=== PATIENT | female | born 2000 | race Caucasian/White ===

== ENCOUNTER 2019-07-13 20:26 | Emergency (ER) | payer OTHER ==
--- NOTE | 2019-07-13 21:07 | EDM.PDOC ---
ED HPI GENERAL MEDICAL PROBLEM - General Chief Complaint: Genitourinary Problem Stated Complaint: BACK PAIN AND VOMITING Time Seen by Provider: 07/13/19 20:28 Source of Information: Reports: Patient History Limitations: Reports: No Limitations - History of Present Illness INITIAL COMMENTS - FREE TEXT/NARRATIVE: HISTORY AND PHYSICAL: History of present illness: Patient is a 19-year-old female who presents to the ED today with concern of low back pain and burning with urination over the past 2 days. Patient states that she has had some nausea today but has not vomited. Patient states that she has felt warm today but has not checked her temperature at home. Patient states she has not taken anything for her symptoms. Patient denies any other symptoms or concerns. Patient denies chills, chest pain, shortness of breath, or cough. Denies headache, neck stiff ness, change in vision, syncope, or near syncope. Denies nausea, vomiting, abdominal pain, diarrhea, constipation. Has not noted any blood in urine or stool. Patient has been eating and drinking appropriately. Review of systems: As per history of present illness and below otherwise all systems reviewed and negative. Past medical history: As per history of present illness and as reviewed below otherwise noncontributory. Surgical history: As per history of present illness and as reviewed below otherwise noncontributory. Social history: See social history for further information Family history: As per history of present illness and as reviewed below otherwise noncontributory. Physical exam: General: Patient is alert, oriented, and in no acute distress. Patient sitting comfortably on exam table. HEENT: Atraumatic, normocephalic, pupils equal and reactive bilaterally, negative for conjunctival pallor or scleral icterus, mucous membranes moist, TMs normal bilaterally, throat clear, neck supple, nontender, trachea midline. No drooling or trismus noted. No meningeal signs. No hot potato voice noted. Lungs: Clear to auscultation, breath sounds equal bilaterally, chest nontender. Heart: S1S2, regular rate and rhythm without overt murmur Abdomen: Soft, nondistended, nontender. Negative for masses or hepatosplenomegaly. Negative for costovertebral tenderness. Pelvis: Stable nontender. Genitourinary: Deferred. Rectal: Deferred. Skin: Intact, warm, dry. No lesions or rashes noted. Extremities/musculoskeletal: No obvious deformity of the complete spine. No step-offs, crepitus, or point tenderness to palpation of the complete spine. Atraumatic, negative for cords or calf pain. Neurovascular unremarkable. Neuro: Awake, alert, oriented. Cranial nerves II through XII unremarkable. Cerebellum unremarkable. Motor and sensory unremarkable throughout. Exam nonfocal. Notes: Discussed importance for follow-up with a primary care provider. Voices understanding and is agreeable to plan of care. Denies any further questions or concerns at this time. Diagnostics: UA, uhcg (labwork was offered to patient but she declines at this time) Therapeutics: None Prescription: Ciprofloxacin, Pyridium Impression: Urinary tract infection Plan: 1. Take medication as prescribed. You can alternate ibuprofen and Tylenol as directed for pain and discomfort. 2. Follow-up with the primary care provider as discussed. Return to the ED as needed and as discussed. Definitive disposition and diagnosis as appropriate pending reevaluation and review of above. back Pain Score (Numeric/FACES): 10 - Related Data Allergies Allergy/AdvReac Type Severity Reaction Status Date / Time Sulfa (Sulfonamide Allergy Hives Verified 07/13/19 20:48 Antibiotics) Home Meds: Home Meds Birthcontrol 07/13/19 [History] Ciprofloxacin [Cipro XR] 500 mg PO BID 7 Days #10 tab.er 07/13/19 [Rx] Phenazopyridine HCl [Pyridium] 200 mg PO TID 2 Days #6 tablet 07/13/19 [Rx] Past Medical History HEENT History: Reports: None Cardiovascular History: Reports: None Respiratory History: Reports: None Gastrointestinal History: Reports: None Genitourinary History: Reports: None Other [employer] History: cyst from ovaries removed Musculoskeletal History: Reports: None Neurological History: Reports: None Psychiatric History: Reports: None Endocrine/Metabolic History: Reports: None Hematologic History: Reports: None Immunologic History: Reports: None Oncologic (Cancer) History: Reports: None Dermatologic History: Reports: None - Infectious Disease History Infectious Disease History: Reports: Meningitis Social & Family History - Family History Family Medical History: Noncontributory - Tobacco Use Smoking Status *Q: Never Smoker - Recreational Drug Use Recreational Drug Use: No ED ROS GENERAL - Review of Systems Review Of Systems: Comprehensive ROS is negative, except as noted in HPI. ED EXAM, GENERAL - Physical Exam Exam: See Below (see dictation) Course - Vital Signs Last Recorded V/S: Last Vital Signs Temp 99.3 F 07/13/19 20:50 Pulse 114 H 07/13/19 20:50 Resp 20 07/13/19 20:50 BP 154/91 H 07/13/19 20:50 Pulse Ox 100 07/13/19 20:50 - Orders/Labs/Meds Orders: Active Orders 24 hr Category Date Time Status CULTURE URINE [RM] Stat Lab 07/13/19 20:56 Received Labs: Laboratory Tests 07/13/19 07/13/19 Range/Units 20:56 20:56 Urine Color YELLOW Urine Appearance SLT CLOUDY Urine pH 7.0 (5.0-8.0) Ur Specific Carter 1.015 (1.001-1.035) Urine Protein TRACE H (NEGATIVE) mg/dL Urine Glucose (UA) NEGATIVE (NEGATIVE) mg/dL Urine Ketones TRACE H (NEGATIVE) mg/dL Urine Occult Blood MODERATE H (NEGATIVE) Urine Nitrite NEGATIVE (NEGATIVE) Urine Bilirubin NEGATIVE (NEGATIVE) Urine Urobilinogen 0.2 (<2.0) EU/dL Ur Leukocyte Esterase SMALL H (NEGATIVE) Urine RBC 3-5 (0-2/HPF) Urine WBC 10-15 (0-5/HPF) Ur Epithelial Cells OCCASIONAL (NONE-FEW) Urine Bacteria 1+ H (NEGATIVE) Urine HCG, Qual NEGATIVE (NEGATIVE) Departure - Departure Time of Disposition: 21:23 Disposition: Home, Self-Care 01 Clinical Impression: Urinary tract infection Qualifiers: Urinary tract infection type: acute cystitis Hematuria presence: without hematuria Qualified Code(s): N30.00 - Acute cystitis without hematuria - Discharge Information Referrals: PCP,None [Primary Care Provider] - Forms: ED Department Discharge Additional Instructions: The following information is given to patients seen in the emergency department who are being discharged to home. This information is to outline your options for follow-up care. We provide all patients seen in our emergency department with a follow-up referral. The need for follow-up, as well as the timing and circumstances, are variable depending upon the specifics of your emergency department visit. If you don't have a primary care physician on staff, we will provide you with a referral. We always advise you to contact your personal physician following an emergency department visit to inform them of the circumstance of the visit and for follow-up with them and/or the need for any referrals to a consulting specialist. The emergency department will also refer you to a specialist when appropriate. This referral assures that you have the opportunity for follow-up care with a specialist. All of these measure are taken in an effort to provide you with optimal care, which includes your follow-up. Under all circumstances we always encourage you to contact your private physician who remains a resource for coordinating your care. When calling for follow-up care, please make the office aware that this follow-up is from your recent emergency room visit. If for any reason you are refused follow-up, please contact the [facility] Emergency Department at and asked to speak to the emergency department charge nurse. [facility] [address] [place] [address] [id number] [address] [address] 1. Take medication as prescribed. You can alternate ibuprofen and Tylenol as directed for pain and discomfort. 2. Follow-up with the primary care provider as discussed. Return to the ED as needed and as discussed. Sepsis Event Note - Evaluation Sepsis Screening Result: No Definite Risk - Focused Exam Vital Signs: Vital Signs Temp Pulse Resp BP Pulse Ox 07/13/19 20:50 99.3 F 114 H 20 154/91 H 100 Date Exam was Performed: 07/13/19 Time Exam was Performed: 21:20 - My Orders Last 24 Hours: My Active Orders 07/13/19 20:56 CULTURE URINE [RM] Stat - Assessment/Plan Last 24 Hours: My Active Orders 07/13/19 20:56 CULTURE URINE [RM] Stat
== END 2019-07-13 21:34 | disposition home or self-care (01) ==
LOC: MW.ED 20:26
DX: N30.00 Acute cystitis without hematuria (principal)
CPT/HCPCS: 81001; 81025; 87086; 87088; 87186; 99283

== ENCOUNTER 2022-07-29 08:20 | Inpatient (IN) | payer OTHER ==
[2022-07-29] MEDS: Lactated Ringers 1,000 ML IV SCH ×3 (08:45→21:20)
[2022-07-29] MEDS ORDERED: Misoprostol 200 MCG Tab PO PRN (08:54)
[2022-07-29] MEDS ORDERED: Lidocaine 1% 50 ML MDV INJECT PRN (08:54)
[2022-07-29] MEDS ORDERED: Carboprost Tromethamine 250 MCG/1 mL Vial IM PRN (08:54)
[2022-07-29] MEDS ORDERED: Methylergonovine 0.2 MG/1 ML Amp IM PRN (08:54)
[2022-07-29] MEDS ORDERED: Sodium Chloride 0.9% 10 ML Syringe FLUSH PRN (08:54)
[2022-07-29] MEDS ORDERED: Water For Irrigation,Sterile 1,000 ML Container IRR PRN (08:54)
[2022-07-29] MEDS ORDERED: Butorphanol 1 MG/ML SDV IVPUSH PRN (08:54)
[2022-07-29] MEDS ORDERED: Misoprostol 25 MCG (1/4 of 100 MCG) Tab VAG PRN ×2 (08:54)
[2022-07-29] MEDS ORDERED: Sodium Chloride 0.9% 2.5 ML Syringe FLUSH PRN (08:54)
[2022-07-29] MEDS ORDERED: Terbutaline 1 MG/ML SDV SUBCUT PRN (08:54)
[2022-07-29] MEDS ORDERED: Tranexamic Acid 1,000 MG in Sodium Chloride 0.9% 100 ML IV PRN (08:54)
[2022-07-29] MEDS ORDERED: Sodium Chloride 0.9% 20 ML SDV IV PRN (08:54)
[2022-07-29] MEDS ORDERED: Oxytocin/0.9 % Sodium Chloride 30 UNIT/500 ML BAG IV SCH ×2 (09:00)
[2022-07-29] MEDS ORDERED: ePHEDrine 50 MG/ML SDV IVPUSH PRN ×2 (09:06)
[2022-07-29 09:14] LABS: HEMATOCRIT 36.4 % (36.0-46.0); HEMOGLOBIN 12.4 g/dL (12.0-16.0); MEAN CORPUSCULAR HEMOGLOBIN 29.5 pg (27.0-32.0); MEAN CORPUSCULAR HGB CONC 34.1 g/dL (31.0-37.0); MEAN CORPUSCULAR VOLUME 86.7 fL (80.0-98.0); MEAN PLATELET VOLUME 9.8 fL (7.40-12.00); RED BLOOD CELL COUNT 4.2 M/uL (4.30-5.90); WHITE BLOOD CELL COUNT,WBC 10.85 K/uL (4.0-11.0)
[2022-07-29] MEDS ORDERED: Ropivacaine HCl/PF 400 MG in Premix Bag 1 BAG EPIDUR SCH (09:15)
[2022-07-29] MEDS ORDERED: Dexmedetomidine 200 MCG/2 ML SDV ONE (19:08)
[2022-07-29] MEDS: Phenylephrine HCl 0.5 MG/5 ML AMP IVPUSH PRN ×2 (20:28→23:08)
[2022-07-29] MEDS ORDERED: LORazepam 2 MG/ML SDV IVPUSH ONE (20:40)
[2022-07-29] MEDS ORDERED: Meperidine PF 25 MG/ML SDV IM PRN (21:13)
[2022-07-29] MEDS ORDERED: Meperidine PF 25 MG/ML SDV IVPUSH PRN (21:25)
[2022-07-30] MEDS: Lactated Ringers 1,000 ML IV SCH (00:03)
[2022-07-30] MEDS: Phenylephrine HCl 0.5 MG/5 ML AMP IVPUSH PRN (00:13)
[2022-07-30] MEDS ORDERED: Ondansetron 4 MG/2 ML SDV IVPUSH PRN (01:41)
[2022-07-30] MEDS ORDERED: Ibuprofen 400 MG Tab PO PRN (05:08)
[2022-07-30] MEDS ORDERED: Acetaminophen 500 MG Tab PO PRN (05:08)
[2022-07-30] MEDS ORDERED: Lanolin 100% Cream 7 GM Tube TOP PRN (05:08)
[2022-07-30] MEDS ORDERED: oxyCODONE 5 MG Tab PO PRN (05:08)
[2022-07-30] MEDS ORDERED: Bisacodyl 10 MG Supp RECTAL PRN (05:08)
[2022-07-30 05:22] LABS: PH,UMBILICAL ARTERIAL 7.25 (7.18-7.38); PH,UMBILICAL VENOUS 7.348 (7.25-7.45)
[2022-07-30] MEDS: Benzocaine/Menthol 20%-0.5% Spray 78 GM Cannister TOP PRN (07:00)
[2022-07-30] MEDS: Witch Hazel Medicated Pads 40/Jar TOP PRN (07:00)
[2022-07-30] MEDS: Ibuprofen 800 MG Tab PO PRN ×2 (07:01→13:26)
[2022-07-30] MEDS: Docusate Sodium 100 MG Cap PO PRN ×2 (10:33→22:08)
[2022-07-30] MEDS: Acetaminophen 500 MG Tab PO PRN (13:26)
[2022-07-31 05:47] LABS: HEMATOCRIT 30.9 % (36.0-46.0); HEMOGLOBIN 10.5 g/dL (12.0-16.0)
[2022-07-31] MEDS: Acetaminophen 500 MG Tab PO PRN (06:07)
[2022-07-31] MEDS: Benzocaine/Menthol 20%-0.5% Spray 78 GM Cannister TOP PRN (13:37)
[2022-07-31] MEDS: Witch Hazel Medicated Pads 40/Jar TOP PRN (13:37)
== END 2022-07-31 15:05 | disposition home or self-care (01) | DRG 807 ==
LOC: MW.OBCHECK 08:20 → MW.OB 08:22 → MW.OBCHECK 08:54 → MW.OB 08:54 → OBSVTOIN 07-30 04:35 → MW.OB 07-30 07:04
PROVIDERS: ADMIT Obstetrics & Gynecology; ATTEND Obstetrics & Gynecology
PROC: 10E0XZZ Delivery of Products of Conception, External Approach (ICD-10-PCS; principal; 2022-07-30)
PROC: 10907ZC Drainage of Amniotic Fluid, Therapeutic from Products of Conception, Via Natural or Artificial Opening (ICD-10-PCS; 2022-07-30)
PROC: 3E0P7VZ Introduction of Hormone into Female Reproductive, Via Natural or Artificial Opening (ICD-10-PCS; 2022-07-30)
PROC: 0HQ9XZZ Repair Perineum Skin, External Approach (ICD-10-PCS; 2022-07-30)
DX: O40.3XX0 Polyhydramnios, third trimester, not applicable or unspecified (principal); Z37.0 Single live birth; Z3A.39 39 weeks gestation of pregnancy; O70.0 First degree perineal laceration during delivery
CPT/HCPCS: 36415; 51702; 59025; 59409; 59414; 82803; 85014; 85018; 85027; 86592; 86850; 86900; 86901; A9270-GY; J2060; J2175; J2370; J2405; J2590; J3490; J7120

== ENCOUNTER 2022-08-15 11:33 | Emergency (ER) | payer OTHER ==
[2022-08-15] MEDS ORDERED: Ketorolac 30 MG/ML SDV IVPUSH ONE (12:16)
[2022-08-15 12:39] LABS: BASOPHILS ABSOLUTE AUTO 0.1 K/uL (0.0-0.1); BASOPHILS PERCENT AUTO 0.8 % (0.0-1.5); EOSINOPHILS ABSOLUTE AUTO 0.9 K/uL (0.0-0.7); EOSINOPHILS PERCENT AUTO 10.2 % (0.0-7.0); HEMATOCRIT 42.5 % (36.0-46.0); HEMOGLOBIN 14.4 g/dL (12.0-16.0); LYMPHOCYTES ABSOLUTE AUTO 2.7 K/uL (0.6-2.4); LYMPHOCYTES PERCENT AUTO 32.1 % (16.0-40.0); MEAN CORPUSCULAR HEMOGLOBIN 28.7 pg (27.0-32.0); MEAN CORPUSCULAR HGB CONC 33.9 g/dL (31.0-37.0); MEAN CORPUSCULAR VOLUME 84.8 fL (80.0-98.0); MONOCYTES ABSOLUTE AUTO 0.6 K/uL (0.0-0.8); MONOCYTES PERCENT AUTO 6.7 % (0.0-15.0); NEUTROPHILS ABSOLUTE AUTO 4.2 K/uL (1.4-5.7); NEUTROPHILS PERCENT AUTO 50.2 % (48.0-80.0); NRBC ABSOLUTE 0 K/uL; PLATELET COUNT,PLT 387 K/uL (150-400); RED BLOOD CELL COUNT 5.01 M/uL (4.30-5.90); WHITE BLOOD CELL COUNT,WBC 8.45 K/uL (4.0-11.0)
[2022-08-15 12:59] LABS: A/G RATIO 0.9 (0.9-1.6); ALBUMIN 3.4 g/dL (3.4-5.0); BILIRUBIN TOTAL 0.4 mg/dL (0.2-1.0); CALCIUM 9.1 mg/dL (8.5-10.1); CARBON DIOXIDE,CO2 24.9 mmol/L (21.0-32.0); CREATININE 0.7 mg/dL (0.6-1.0); EST CRCL DRUG DOSING (CG) 120.51 mL/min; POTASSIUM,K 4.1 mmol/L (3.5-5.1); PROTEIN TOTAL,TP 7.1 g/dL (6.4-8.2)
[2022-08-15] MEDS ORDERED: Iopamidol 755 MG/ML 500 ML Multipack Bottle IVPUSH STA (15:13)
== END 2022-08-15 13:36 | disposition home or self-care (01) ==
LOC: MW.ED 11:33
DX: O90.89 Other complications of the puerperium, not elsewhere classified (principal); R10.13 Epigastric pain; Z86.16 Personal history of COVID-19; Z88.0 Allergy status to penicillin
CPT/HCPCS: 36415; 74177; 80053; 83690; 85025; 96374; 99284; J1885; Q9967